=== PATIENT | male | born 1995 | race Hispanic/Latino ===

== ENCOUNTER 2022-04-22 07:03 | Emergency (ER) | payer BC, SELFPAY ==
[2022-04-22] MEDS ORDERED: Lidocaine 1% w/Epinephrine 1:100K 20 ML VIAL ONE (07:45)
[2022-04-22] MEDS ORDERED: Acetaminophen/Codeine 30-300mg Tablet ONE (08:35)
[2022-04-22] MEDS ORDERED: Boostrix 0.5 ML (Tdap) VIAL (>/=7 yrs of age) ONE (08:35)
== END 2022-04-22 08:20 | disposition home or self-care (01) ==
LOC: ERS 07:03
DX: L05.01 Pilonidal cyst with abscess (principal)
CPT/HCPCS: 10080; 90715